=== PATIENT | female | born 1975 | race Caucasian/White ===

== ENCOUNTER 2016-10-19 06:52 | Emergency (ER) | payer OTHER ==
[~2016-10-19 06:52] MED LIST: GLYB5TAB5 PO; IBUP200T2 PO; PRENTAB74 PO; SYNT75TA PO
[2016-10-19] MEDS ORDERED: PERCOCET 5MG/325MG TAB As Ordered ONE (08:05)
[2016-10-19] MEDS ORDERED: predniSONE 20 MG TAB As Ordered ONE (08:06)
--- NOTE | 2016-10-19 08:48 | EDDOCDS ---
Nurse's Notes [facility] Name: Natalie Cr Age: 41 yrs Sex: Female : 1975 Arrival Date: 10/19/2016 Time: 06:52 Bed I2 / M2 Private MD: Diagnosis: Dorsalgia-Acute, Right-sided Presentation: 10/19 07:03 Presenting complaint: Patient states: since Wednesday she has had pain in her neck and now kcs it is in her right shoulder and her right arm - hurts to hold her arm up - states she woke up this am and the pain was so bad she passed out. Adult Sepsis Screening: The patient does not have new or worsening altered mentation. Patient's respiratory rate is less than 22. Systolic blood pressure is greater than 100. Patient has a qSOFA score of 0- Negative Sepsis Screen. Suicide/Homicide risk assessment- the patient denies having any suicidal and/or homicidal ideations and does not present with any other emotional, behavioral or mental health complaints. 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 Transition of care: patient was not received from another setting of care. 07:03 Acuity: PHUONG Level 4 kcs 07:03 Method Of Arrival: Walkin/Carried/Asstd kcs Triage Assessment: 07:07 General: Appears comfortable, well developed, well nourished, well groomed, Behavior is kcs cooperative, pleasant. Pain: Location: right side of neck and down right arm Pain currently is 8 out of 10 on a pain scale. Pt Declines HIV testing. Neurological: Level of Consciousness is awake, alert. Respiratory: Airway is patent Respiratory effort is even, unlabored, Respiratory pattern is regular, symmetrical. Derm: Skin is intact, is healthy with good turgor, Skin is dry, Skin is normal. 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 Synthroid 88 mcg Oral tab 1 tab once daily 2. Multivitamin Oral 1 tablet daily 3. Vitamin D Oral 2000 unit daily 4. Vitamin C 100 mg oral chew 200 mg daily 5. ibuprofen 200 mg oral tab 600 mg as needed (Last dose: 10/18/2016) - PMHx: Thyroid problem; - PSHx: Laparoscopy; - Social history: Smoking status: Patient states was never smoker of tobacco. No barriers to communication noted, The patient speaks fluent Solomon Islander. - Family history: Not pertinent. - : The pt / caregiver states he / she is not on anticoagulants. Home medication list is obtained from the patient. - Exposure Risk Screening:: None identified. Screenin:18 Screening information is obtained from the patient. Primary language is Solomon Islander. Fall jam1 risk: No risks identified. Assistance ADL's: requires no assistance with activities of daily living. Abuse/DV Screen: The patient / caregiver reports he/she is: not in a situation that causes fear, pain or injury. Nutritional screening: No deficits noted. Exposure Risk Screening: None identified. Advance Directives: Currently, there is no health care proxy. There is no active DNR order. There is no living will. There is no Power of Crook Operator. Advance directive information has not previously been placed in an [facility] medical record. Further advance directive information is declined. home support is adequate. Assessment: 07:32 General: Appears uncomfortable, Indicates discomfort to right shoulder blade area that jmk increases with palpation and with movement of arm. Point specific discomfort. without resp distress. 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 07:32 Neurological: Level of Consciousness is awake, alert, Oriented to person, place, time, jmk Creative Developer are equal bilaterally Moves all extremities. Gait is steady, Speech is normal, Facial symmetry appears normal. 08:46 General: Appears states pain has decreased to 2/10. [facility] Vital Signs: 07:07 BP 112 / 76; Pulse 68; Resp 20; Temp 97.1; Pulse Ox 97.0% ; Weight 81.65 kg (R); Height [facility] 5 ft. 9 in. (175.26 cm) (R); Pain 8/10; 08:26 BP 127 / 83; Pulse 55; Resp 20; Temp 97.8; Pulse Ox 99% ; Pain 3/10; jam1 07:07 Body Mass Index 26.58 (81.65 kg, 175.26 cm) [facility] Vitals: 07:07 Log In Time: October 19, 2016 at 06:54. [facility] ED Course: 06:54 Patient visited by Lashae Phan, Reg. hs2 06:54 Patient moved to Waiting hs2 07:04 Triage Initiated kcs 07:10 Patient moved to I2 / M2 kcs 07:20 Pt greeted and oriented to ED. Patient advised of names of staff involved in care, jam location of call [place], wait times and NPO status. Patient has correct armband on for positive identification. Placed in gown. Bed in low position. Call light in reach. Side rails up X 1. Adult w/ patient. Door closed. 07:32 The patient / caregiver is instructed regarding the plan of care and ED course. jmk 07:35 Patient visited by Mkie Almeida RN. jmk 07:40 Elizabeth Barnard PA-C is PHCP. ef1 07:40 Jose Schafer MD is Attending Physician. ef1 07:47 Patient visited by Elizabeth Barnard PA-C. ef1 07:57 [facility] Payment Agreement was scanned into [employer] and attached to record. mm15 08:23 Patient visited by oMni Jaime PCA. jam1 08:46 No IV's were initiated during this patient's visit. No procedures done that require jmk assistance. Administered Medications: 08:12 Drug: Diazepam 10 mg [diazepam 5 mg/mL injection syringe (2 mL)] Route: IM; Site: right k gluteus; 08:46 Follow up: Response: Pain is decreased k 08:12 Drug: oxyCODONE-acetaminophen 1 tabs [oxycodone-acetaminophen 5 mg-325 mg tablet (1 jmk tabs)] Route: PO; 08:46 Follow up: Response: Pain is decreased k 08:12 Drug: predniSONE 60 mg [prednisone 20 mg tablet (3 tabs)] Route: PO; jmk 08:45 Follow up: Response: Pain is decreased jmk Order Results: There are currently no results for this order. Outcome: 08:00 Discharge ordered by Provider. ef1 08:46 Discharge Assessment: Patient awake, alert and oriented x 3. No cognitive and/or jmk functional deficits noted. Patient verbalized understanding of disposition instructions. Discharge Assessment: patient administered narcotics - yes. Pt provided with safe discharge. The following High Risk Discharge criteria are identified: None. Discharged to home ambulatory. Condition: good. Discharge instructions given to patient, Instructed on discharge instructions, follow up and referral plans. medication usage, no driving heavy equipment, Demonstrated understanding of instructions, medications, Pt was receptive of discharge instructions/ teaching. Prescriptions given X 4. No special radiology studies were completed. Property :Personal belongings accompany Pt. 08:47 Patient left the ED. delia Signatures: Heidy Fernandez, RN Mike Rosenberg RN RN jmk Murphy, Jane, JIM RETAIL SUPPORT MANAGER jam1 Elizabeth Barnard, PA-C PA-C ef1 Monique Bourgeois mm15 Lashae Phan, Reg Reg hs2 MTDD
--- NOTE | 2016-10-19 08:48 | EDDOCDS ---
Physician Documentation [facility] Name: Natalie Cr Age: 41 yrs Sex: Female : 1975 Arrival Date: 10/19/2016 Time: 06:52 Bed I2 / M2 Private MD: Disposition: 10/19/16 08:00 Discharged to Home/Self Care. Impression: Dorsalgia - Acute, Right-sided. - Condition is Stable. - Discharge Instructions: Back Pain, Adult, [id number]. - Prescriptions for Mobic 7.5 mg Oral Tablet - take 1 tablet by ORAL route once daily take with food; 20 tablet. Percocet 5- 325 mg Oral Tablet - take 1 tablet by ORAL route every 6 hours As needed MDD: 4 tabs; 10 tablet. Prednisone 20 mg Oral Tablet - take 3 tablet by ORAL route once daily for 5 days; 15 tablet. Zanaflex 4 mg Oral Tablet - take 1 tablet by ORAL route every 8 hours As needed Will cause drowsiness, do not take while driving/operating heavy machinery.; 20 tablet. - Medication Reconciliation, Local Pharmacy Hours form. - Follow up: Private Physician; When: 1 - 2 days; Reason: Recheck today's complaints, Continuance of care. Follow up: Emergency Department; Reason: Worsening of conditions. - Problem is new. - Symptoms have improved. Historical: - Allergies: PENICILLINS (Hives); - Home Meds: 1. Synthroid 88 mcg Oral tab 1 tab once daily 2. Multivitamin Oral 1 tablet daily 3. Vitamin D Oral 2000 unit daily 4. Vitamin C 100 mg oral chew 200 mg daily 5. ibuprofen 200 mg oral tab 600 mg as needed (Last dose: 10/18/2016) - PMHx: Thyroid problem; - PSHx: Laparoscopy; - Social history: Smoking status: Patient states was never smoker of tobacco. No barriers to communication noted, The patient speaks fluent [place]. - Family history: Not pertinent. - : The pt / caregiver states he / she is not on anticoagulants. Home medication list is obtained from the patient. - Exposure Risk Screening:: None identified. 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 9 in. (175.26 cm) (R); Pain 8/10; 08:26 BP 127 / 83; Pulse 55; Resp 20; Temp 97.8; Pulse Ox 99% ; Pain 3/10; jam1 07:07 Body Mass Index 26.58 (81.65 kg, 175.26 cm) kcs MDM: 07:54 Financial registration complete. mm15 07:55 Diazepam 10 mg IM once ordered. ef1 07:55 oxyCODONE-acetaminophen 5 mg-325 mg 1 tabs PO once ordered. ef1 07:55 Ice Pack ordered. ef1 07:55 predniSONE 60 mg PO once; administer with food or milk ordered. ef1 07:57 [facility] Payment Agreement was scanned into [employer] and attached to record. mm15 Administered Medications: 08:12 Drug: Diazepam 10 mg [diazepam 5 mg/mL injection syringe (2 mL)] Route: IM; Site: right k gluteus; 08:46 Follow up: Response: Pain is decreased [facility] 08:12 Drug: oxyCODONE-acetaminophen 1 tabs [oxycodone-acetaminophen 5 mg-325 mg tablet (1 jmk tabs)] Route: PO; 08:46 Follow up: Response: Pain is decreased [facility] 08:12 Drug: predniSONE 60 mg [prednisone 20 mg tablet (3 tabs)] Route: PO; k 08:45 Follow up: Response: Pain is decreased [facility] Signatures: Heidy Fernandez RN RN kcs Knapp, Jean, RN RN jmk Feola, Erica, PA-Thai PA-Thai ef1 Monique Bourgeois mm15 The chart was reviewed and I authenticate all verbal orders and agree with the evaluation and treatment provided.Attachments: 07:57 [facility] Payment Agreement mm15 MTDD
--- NOTE | 2016-10-21 09:48 | EDDOCDS ---
Physician Documentation [facility] Name: Natalie Cr Age: 41 yrs Sex: Female : 1975 Arrival Date: 10/19/2016 Time: 06:52 Bed I2 / M2 Private MD: Disposition: 10/19/16 08:00 Discharged to Home/Self Care. Impression: Dorsalgia - Acute, Right-sided. - Condition is Stable. - Discharge Instructions: Back Pain, Adult, [id number]. - Prescriptions for Mobic 7.5 mg Oral Tablet - take 1 tablet by ORAL route once daily take with food; 20 tablet. Percocet 5- 325 mg Oral Tablet - take 1 tablet by ORAL route every 6 hours As needed MDD: 4 tabs; 10 tablet. Prednisone 20 mg Oral Tablet - take 3 tablet by ORAL route once daily for 5 days; 15 tablet. Zanaflex 4 mg Oral Tablet - take 1 tablet by ORAL route every 8 hours As needed Will cause drowsiness, do not take while driving/operating heavy machinery.; 20 tablet. - Medication Reconciliation, Local Pharmacy Hours form. - Follow up: Private Physician; When: 1 - 2 days; Reason: Recheck today's complaints, Continuance of care. Follow up: Emergency Department; Reason: Worsening of conditions. - Problem is new. - Symptoms have improved. Historical: - Allergies: PENICILLINS (Hives); - Home Meds: 1. Synthroid 88 mcg Oral tab 1 tab once daily 2. Multivitamin Oral 1 tablet daily 3. Vitamin D Oral 2000 unit daily 4. Vitamin C 100 mg oral chew 200 mg daily 5. ibuprofen 200 mg oral tab 600 mg as needed (Last dose: 10/18/2016) - PMHx: Thyroid problem; - PSHx: Laparoscopy; - Social history: Smoking status: Patient states was never smoker of tobacco. No barriers to communication noted, The patient speaks fluent Yakut. - Family history: Not pertinent. - : The pt / caregiver states he / she is not on anticoagulants. Home medication list is obtained from the patient. - Exposure Risk Screening:: None identified. 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 9 in. (175.26 cm) (R); Pain 8/10; 08:26 BP 127 / 83; Pulse 55; Resp 20; Temp 97.8; Pulse Ox 99% ; Pain 3/10; jam1 07:07 Body Mass Index 26.58 (81.65 kg, 175.26 cm) kcs MDM: 07:54 Financial registration complete. mm15 07:55 Diazepam 10 mg IM once ordered. ef1 07:55 oxyCODONE-acetaminophen 5 mg-325 mg 1 tabs PO once ordered. ef1 07:55 Ice Pack ordered. ef1 07:55 predniSONE 60 mg PO once; administer with food or milk ordered. ef1 07:57 [facility] Payment Agreement was scanned into [employer] and attached to record. mm15 14:57 T-Sheet-- Draft Copy was scanned into [employer] and attached to record. gb Administered Medications: 08:12 Drug: Diazepam 10 mg [diazepam 5 mg/mL injection syringe (2 mL)] Route: IM; Site: right abdirahman gluteus; 08:46 Follow up: Response: Pain is decreased [facility] 08:12 Drug: oxyCODONE-acetaminophen 1 tabs [oxycodone-acetaminophen 5 mg-325 mg tablet (1 jmk tabs)] Route: PO; 08:46 Follow up: Response: Pain is decreased [facility] 08:12 Drug: predniSONE 60 mg [prednisone 20 mg tablet (3 tabs)] Route: PO; k 08:45 Follow up: Response: Pain is decreased [facility] Signatures: Heidy Fernandez RN RN kcs Knapp, Jean, RN RN jmk Barnhardt, Gloria, Elizabeth Garcia, KAY VILLANUEVA ef1 Monique Bourgeois mm15 The chart was reviewed and I authenticate all verbal orders and agree with the evaluation and treatment provided.Attachments: :57 [facility] Payment Agreement mm15 14:57 T-Sheet-- Draft Copy gb Chart Complete MTDD
--- NOTE | 2016-10-21 09:48 | EDDOCDS ---
Physician Documentation [facility] Name: Natalie Cr Age: 41 yrs Sex: Female : 1975 Arrival Date: 10/19/2016 Time: 06:52 Bed I2 / M2 Private MD: Disposition: 10/19/16 08:00 Discharged to Home/Self Care. Impression: Dorsalgia - Acute, Right-sided. - Condition is Stable. - Discharge Instructions: Back Pain, Adult, [id number]. - Prescriptions for Mobic 7.5 mg Oral Tablet - take 1 tablet by ORAL route once daily take with food; 20 tablet. Percocet 5- 325 mg Oral Tablet - take 1 tablet by ORAL route every 6 hours As needed MDD: 4 tabs; 10 tablet. Prednisone 20 mg Oral Tablet - take 3 tablet by ORAL route once daily for 5 days; 15 tablet. Zanaflex 4 mg Oral Tablet - take 1 tablet by ORAL route every 8 hours As needed Will cause drowsiness, do not take while driving/operating heavy machinery.; 20 tablet. - Medication Reconciliation, Local Pharmacy Hours form. - Follow up: Private Physician; When: 1 - 2 days; Reason: Recheck today's complaints, Continuance of care. Follow up: Emergency Department; Reason: Worsening of conditions. - Problem is new. - Symptoms have improved. Historical: - Allergies: PENICILLINS (Hives); - Home Meds: 1. Synthroid 88 mcg Oral tab 1 tab once daily 2. Multivitamin Oral 1 tablet daily 3. Vitamin D Oral 2000 unit daily 4. Vitamin C 100 mg oral chew 200 mg daily 5. ibuprofen 200 mg oral tab 600 mg as needed (Last dose: 10/18/2016) - PMHx: Thyroid problem; - PSHx: Laparoscopy; - Social history: Smoking status: Patient states was never smoker of tobacco. No barriers to communication noted, The patient speaks fluent Latvian. - Family history: Not pertinent. - : The pt / caregiver states he / she is not on anticoagulants. Home medication list is obtained from the patient. - Exposure Risk Screening:: None identified. 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 9 in. (175.26 cm) (R); Pain 8/10; 08:26 BP 127 / 83; Pulse 55; Resp 20; Temp 97.8; Pulse Ox 99% ; Pain 3/10; jam1 07:07 Body Mass Index 26.58 (81.65 kg, 175.26 cm) kcs MDM: 07:54 Financial registration complete. mm15 07:55 Diazepam 10 mg IM once ordered. ef1 07:55 oxyCODONE-acetaminophen 5 mg-325 mg 1 tabs PO once ordered. ef1 07:55 Ice Pack ordered. ef1 07:55 predniSONE 60 mg PO once; administer with food or milk ordered. ef1 07:57 [facility] Payment Agreement was scanned into [employer] and attached to record. mm15 14:57 T-Sheet-- Draft Copy was scanned into [employer] and attached to record. gb Administered Medications: 08:12 Drug: Diazepam 10 mg [diazepam 5 mg/mL injection syringe (2 mL)] Route: IM; Site: right abdirahman gluteus; 08:46 Follow up: Response: Pain is decreased [facility] 08:12 Drug: oxyCODONE-acetaminophen 1 tabs [oxycodone-acetaminophen 5 mg-325 mg tablet (1 jmk tabs)] Route: PO; 08:46 Follow up: Response: Pain is decreased [facility] 08:12 Drug: predniSONE 60 mg [prednisone 20 mg tablet (3 tabs)] Route: PO; k 08:45 Follow up: Response: Pain is decreased [facility] Signatures: Heidy Fernandez RN RN kcs Knapp, Jean, RN RN jmk Barnhardt, Gloria, Elizabeth Garcia, KAY VILLANUEVA ef1 Monique Bourgeois mm15 The chart was reviewed and I authenticate all verbal orders and agree with the evaluation and treatment provided.Attachments: :57 [facility] Payment Agreement mm15 14:57 T-Sheet-- Draft Copy gb Chart Complete MTDD
--- NOTE | 2016-10-21 09:48 | EDDOCDS ---
Nurse's Notes [facility] Name: Natalie Cr Age: 41 yrs Sex: Female : 1975 Arrival Date: 10/19/2016 Time: 06:52 Bed I2 / M2 Private MD: Diagnosis: Dorsalgia-Acute, Right-sided Presentation: 10/19 07:03 Presenting complaint: Patient states: since Wednesday she has had pain in her neck and now kcs it is in her right shoulder and her right arm - hurts to hold her arm up - states she woke up this am and the pain was so bad she passed out. Adult Sepsis Screening: The patient does not have new or worsening altered mentation. Patient's respiratory rate is less than 22. Systolic blood pressure is greater than 100. Patient has a qSOFA score of 0- Negative Sepsis Screen. Suicide/Homicide risk assessment- the patient denies having any suicidal and/or homicidal ideations and does not present with any other emotional, behavioral or mental health complaints. Status: Patient is not a ground services instructor or dependent. Transition of care: patient was not received from another setting of care. 07:03 Acuity: PHUONG Level 4 kcs 07:03 Method Of Arrival: Walkin/Carried/Asstd kcs Triage Assessment: 07:07 General: Appears comfortable, well developed, well nourished, well groomed, Behavior is kcs cooperative, pleasant. Pain: Location: right side of neck and down right arm Pain currently is 8 out of 10 on a pain scale. Pt Declines HIV testing. Neurological: Level of Consciousness is awake, alert. Respiratory: Airway is patent Respiratory effort is even, unlabored, Respiratory pattern is regular, symmetrical. Derm: Skin is intact, is healthy with good turgor, Skin is dry, Skin is normal. 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 Synthroid 88 mcg Oral tab 1 tab once daily 2. Multivitamin Oral 1 tablet daily 3. Vitamin D Oral 2000 unit daily 4. Vitamin C 100 mg oral chew 200 mg daily 5. ibuprofen 200 mg oral tab 600 mg as needed (Last dose: 10/18/2016) - PMHx: Thyroid problem; - PSHx: Laparoscopy; - Social history: Smoking status: Patient states was never smoker of tobacco. No barriers to communication noted, The patient speaks fluent Bermudian. - Family history: Not pertinent. - : The pt / caregiver states he / she is not on anticoagulants. Home medication list is obtained from the patient. - Exposure Risk Screening:: None identified. Screenin:18 Screening information is obtained from the patient. Primary language is Bermudian. Fall jam1 risk: No risks identified. Assistance ADL's: requires no assistance with activities of daily living. Abuse/DV Screen: The patient / caregiver reports he/she is: not in a situation that causes fear, pain or injury. Nutritional screening: No deficits noted. Exposure Risk Screening: None identified. Advance Directives: Currently, there is no health care proxy. There is no active DNR order. There is no living will. There is no Power of Rolling Chair Pusher. Advance directive information has not previously been placed in an [facility] medical record. Further advance directive information is declined. home support is adequate. Assessment: 07:32 General: Appears uncomfortable, Indicates discomfort to right shoulder blade area that jmk increases with palpation and with movement of arm. Point specific discomfort. without resp distress. 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 07:32 Neurological: Level of Consciousness is awake, alert, Oriented to person, place, time, jmk Industrial Hygiene Manager are equal bilaterally Moves all extremities. Gait is steady, Speech is normal, Facial symmetry appears normal. 08:46 General: Appears states pain has decreased to 2/10. [facility] Vital Signs: 07:07 BP 112 / 76; Pulse 68; Resp 20; Temp 97.1; Pulse Ox 97.0% ; Weight 81.65 kg (R); Height [facility] 5 ft. 9 in. (175.26 cm) (R); Pain 8/10; 08:26 BP 127 / 83; Pulse 55; Resp 20; Temp 97.8; Pulse Ox 99% ; Pain 3/10; jam1 07:07 Body Mass Index 26.58 (81.65 kg, 175.26 cm) [facility] Vitals: 07:07 Log In Time: October 19, 2016 at 06:54. [facility] ED Course: 06:54 Patient visited by Lashae Phan, Reg. hs2 06:54 Patient moved to Waiting hs2 07:04 Triage Initiated kcs 07:10 Patient moved to I2 / M2 kcs 07:20 Pt greeted and oriented to ED. Patient advised of names of staff involved in care, jam1 location of call [place], wait times and NPO status. Patient has correct armband on for positive identification. Placed in gown. Bed in low position. Call light in reach. Side rails up X 1. Adult w/ patient. Door closed. 07:32 The patient / caregiver is instructed regarding the plan of care and ED course. jmk 07:35 Patient visited by Mike Almeida RN. jmk 07:40 Elizabeth Barnard PA-C is PHCP. ef1 07:40 Jose Schafer MD is Attending Physician. ef1 07:47 Patient visited by Elizabeth Barnard PA-C. ef1 07:57 [facility] Payment Agreement was scanned into [employer] and attached to record. mm15 08:23 Patient visited by Moni Jaime PCA. jam1 08:46 No IV's were initiated during this patient's visit. No procedures done that require jmk assistance. 14:57 T-Sheet-- Draft Copy was scanned into [employer] and attached to record. gb Administered Medications: 08:12 Drug: Diazepam 10 mg [diazepam 5 mg/mL injection syringe (2 mL)] Route: IM; Site: right jmk gluteus; 08:46 Follow up: Response: Pain is decreased jmk 08:12 Drug: oxyCODONE-acetaminophen 1 tabs [oxycodone-acetaminophen 5 mg-325 mg tablet (1 jmk tabs)] Route: PO; 08:46 Follow up: Response: Pain is decreased jmk 08:12 Drug: predniSONE 60 mg [prednisone 20 mg tablet (3 tabs)] Route: PO; jmk 08:45 Follow up: Response: Pain is decreased jmk Order Results: There are currently no results for this order. Outcome: 08:00 Discharge ordered by Provider. ef1 08:46 Discharge Assessment: Patient awake, alert and oriented x 3. No cognitive and/or jmk functional deficits noted. Patient verbalized understanding of disposition instructions. Discharge Assessment: patient administered narcotics - yes. Pt provided with safe discharge. The following High Risk Discharge criteria are identified: None. Discharged to home ambulatory. Condition: good. Discharge instructions given to patient, Instructed on discharge instructions, follow up and referral plans. medication usage, no driving heavy equipment, Demonstrated understanding of instructions, medications, Pt was receptive of discharge instructions/ teaching. Prescriptions given X 4. No special radiology studies were completed. Property :Personal belongings accompany Pt. 08:47 Patient left the ED. delia Signatures: Heidy Fernandez, RN RN Mike Ashraf RN RN Moni Youssef, HIGH SCHOOL TUTOR HIGH SCHOOL TUTOR jam1 Kim Dickey, Reg Reg gb Eliazbeth Barnard, PA-C PA-C ef1 Monique Bourgeois mm15 Lashae Phan, Reg Reg hs2 Chart Complete MTDD
== END 2016-10-19 08:47 | disposition home or self-care (01) ==
LOC: M ED 06:52
DX: M54.9 Dorsalgia, unspecified (principal); E07.9 Disorder of thyroid, unspecified; Z79.899 Other long term (current) drug therapy; Z88.0 Allergy status to penicillin
CPT/HCPCS: 96372; 99283; J3360

== ENCOUNTER → 2017-03-28 | Outpatient (REF) | payer OTHER | LOC: M LAB REF 09:44 | PROVIDERS: ATTEND Physician Assistant | DX: J02.9 Acute pharyngitis, unspecified (principal) ==

== ENCOUNTER → 2017-09-29 | Outpatient (CLI) | payer OTHER | LOC: M ADAMS 08:35 | DX: J20.9 Acute bronchitis, unspecified (principal) | CPT/HCPCS: 71046 ==

== ENCOUNTER → 2018-08-04 | Outpatient (CLI) | payer OTHER | LOC: M ADAMS 10:51 | DX: R06.02 Shortness of breath (principal); J20.9 Acute bronchitis, unspecified | CPT/HCPCS: 71046 ==

== ENCOUNTER → 2018-08-16 | Outpatient (CLI) | payer OTHER | LOC: M ADAMS 13:51 | DX: R05 Cough (principal) | CPT/HCPCS: 71046 ==

== ENCOUNTER → 2018-11-03 | Outpatient (REF) | payer OTHER | LOC: M LAB REF 12:17 | PROVIDERS: ATTEND Physician Assistant | DX: N39.0 Urinary tract infection, site not specified (principal) ==

== ENCOUNTER → 2018-11-15 | Outpatient (REF) | payer OTHER | LOC: M LAB REF 19:27 | PROVIDERS: ATTEND Physician Assistant Medical | DX: R10.9 Unspecified abdominal pain (principal) ==

== ENCOUNTER → 2019-01-24 | Outpatient (REF) | payer OTHER ==
[2019-01-24 18:30] LABS: FREE T4 1.25 NG/DL (0.76-1.46); THYROID STIMULATING HORMONE 2.09 uIU/ML (0.358-3.740)
[2019-01-24 22:25] LABS: FOLLICLE STIMULATING HORMONE 23.3 mIU/mL; LUTEINIZING HORMONE 36.9 mIU/mL
== END ==
LOC: M LAB REF 16:49
PROVIDERS: ATTEND Obstetrics & Gynecology
DX: N92.1 Excessive and frequent menstruation with irregular cycle (principal)

== ENCOUNTER 2019-05-12 06:32 | Day surgery (SDC) | payer OTHER ==
[~2019-05-12] VITALS: Ht 175.3 cm; Wt 86.7 kg
[~2019-05-12 06:32] MED LIST changes: +GLYB5TA PO; +LEVO75TA4 PO; +LR 1,000 ML IV ONE
[2019-05-12] MEDS ORDERED: PROPOFOL 200 MG/20 ML VIAL As Ordered ONE (06:54)
[2019-05-12] MEDS ORDERED: LIDOCAINE 2% INJ 100 MG/5 ML SDV (FOR ANES.) As Ordered ONE ×2 (06:54→08:21)
[2019-05-12] MEDS ORDERED: ONDANSETRON 4MG/2ML VIAL (J2405) As Ordered ONE (06:55)
[2019-05-12] MEDS ORDERED: dexameTHASONE 4 MG/ML 1ML VIAL (J1100) As Ordered ONE (06:55)
[2019-05-12] MEDS ORDERED: KETOROLAC 60 MG/2 ML VIAL (J1885) As Ordered ONE (06:55)
[2019-05-12] MEDS ORDERED: ACETAMINOPHEN 1000MG 100ML IV BTL (OFIRMEV) (J0131 PER 10MG) As Ordered ONE (06:55)
[2019-05-12] MEDS ORDERED: MIDAZOLAM INJ 2 MG/2 ML VIAL (J2250) As Ordered ONE (06:56)
[2019-05-12] MEDS ORDERED: fentaNYL 250 MCG/5 ML INJECTION (J3010) As Ordered ONE (06:56)
[2019-05-12 07:09] LABS: HEMATOCRIT 42.5 % (36.0-47.0); HEMOGLOBIN 14.5 g/dl (12.0-15.5); MEAN CORPUSCULAR HEMOGLOBIN 30.7 pg (27.0-33.0); MEAN CORPUSCULAR HGB CONC 34.1 g/dl (32.0-36.5); MEAN CORPUSCULAR VOLUME 89.9 fl (80.0-96.0); PLATELET COUNT, AUTOMATED 183 10^3/uL (150-450); RED BLOOD COUNT 4.73 10^6/uL (4.00-5.40); WHITE BLOOD COUNT 5.8 10^3/uL (4.0-10.0)
[2019-05-12 07:10] LABS: URINE PREG TEST NEGATIVE (NEGATIVE)
[2019-05-12] MEDS ORDERED: ROCURONIUM BROMIDE 50 MG/5 ML VIAL As Ordered ONE (07:10)
[2019-05-12] MEDS ORDERED: BUPIVACAINE/EPIN 0.25% 30 ML VIAL As Ordered ONE (07:12)
[2019-05-12] MEDS ORDERED: SUGAMMADEX SODIUM 500 MG/5 ML VIAL (BRIDION) As Ordered ONE (07:13)
[2019-05-12] MEDS ORDERED: ACETAMINOPHEN 650 MG SUPP As Ordered ONE (07:40)
[2019-05-12] MEDS ORDERED: PERC5TAB12 PO (08:47)
[2019-05-12] MEDS ORDERED: IBUP80TA PO (08:47)
[2019-05-12] MEDS ORDERED: oxyCODONE 5MG TAB As Ordered ONE (08:59)
[2019-05-12] MEDS ORDERED: LR 1,000 ML IV SCH (09:00)
[2019-05-12] MEDS ORDERED: oxyCODONE 5MG TAB PO PRN (09:00)
[2019-05-12] MEDS ORDERED: fentaNYL 100 MCG/2 ML INJECTION (J3010) IV PRN (09:00)
[2019-05-12] MEDS ORDERED: ONDANSETRON 4MG/2ML VIAL (J2405) IV PRN (09:00)
[2019-05-12] MEDS ORDERED: PERCOCET 5MG/325MG TAB PO PRN (09:15)
[2019-05-12 10:12] VITALS: BP 136/67
[2019-05-12] MEDS ORDERED: IBUPROFEN 800 MG TAB PO SCH (14:00)
--- NOTE | 2019-05-15 16:05 | RO ---
DATE OF PROCEDURE: 05/12/2019 Natalie is a 44-year-old female, multiparity, desires permanent tubal sterilization. The patient also have an extensive history of menorrhagia. After counseling in the office a decision was made to proceed with laparoscopic bilateral salpingectomy, dilation and curettage, hysteroscopy, and NovaSure ablation. PREOPERATIVE DIAGNOSES: 1. Multiparity, desires permanent tubal sterilization. 2. Menorrhagia. POSTOPERATIVE DIAGNOSES: 1. Multiparity, desires permanent tubal sterilization. 2. Menorrhagia. 3. Fibroid uterus. PROCEDURE: 1. Left laparoscopic bilateral salpingectomy. 2. Dilation and curettage. 3. Hysteroscopy. 4. NovaSure ablation. ANESTHESIA: General. SURGEON: Dr. Rice PROFILER OPERATOR: COMPLICATIONS: None. ESTIMATED BLOOD LOSS: Less than 15 mL. FINDINGS: Endometrial curetting. Normal-appearing tubes with fibroid uterus. PROCEDURE: After obtaining informed consent, patient was taken to the operating room where general anesthetic was found to be adequate. She was then draped and prepped in usual sterile fashion in the dorsal lithotomy position. At this point, a Barone catheter was placed in the bladder for drainage. We then placed a Eduardo uterine manipulator. Attention turned to the abdomen where a 5 mm infraumbilical incision was made. Using the Veress needle the abdomen was insufflated with CO2 gas to approximately 3.5 liters. We then placed a 5 mm Xcel trocar along with the laparoscope under direct visualization. Then, an 8 mm right lateral port was placed. The patient was then placed in Trendelenburg. The fallopian tubes were identified and the fallopian tube was then removed entirely using an Dominick Harmonic scalpel. Both side was done in similar fashion. Pelvis copiously irrigated with normal saline and suctioned out. I then turned my attention to the vagina where the uterine manipulator was removed and a single-tooth tenaculum was placed. The uterus was sound to approximately 11 cm in size giving a total cavity length of 6.5. The cervix was dilated. The hysteroscope was inserted. Fluffy endometrium noted. No evidence of any other abnormalities. At this point, a sharp curettage of the endometrial lining was done. Then, the NovaSure device was then inserted. The cavity length adjusted to 6.5. The cavity width to 3.5. The cavity test was then performed. After passing the cavity test, the device was enabled and the endometrial ablation was then started. The cycle lasted approximately 63 seconds. Good hemostasis noted. At this point, we then closed laparoscopic ports using #4-0 Monocryl on the 8-mm port and Dermabond on the rest. 0.25% Marcaine was placed for postoperative pain. The patient tolerated procedure well. She was then transferred to recovery room in stable condition. VINCE
== END 2019-05-12 10:45 | disposition home or self-care (01) ==
LOC: M SDC 06:32
PROVIDERS: ATTEND Obstetrics & Gynecology
DX: N92.0 Excessive and frequent menstruation with regular cycle (principal); Z30.2 Encounter for sterilization; D25.9 Leiomyoma of uterus, unspecified; E03.9 Hypothyroidism, unspecified; J84.10 Pulmonary fibrosis, unspecified; Z79.899 Other long term (current) drug therapy; Z88.0 Allergy status to penicillin; Z88.8 Allergy status to other drugs, medicaments and biological substances
CPT/HCPCS: 36415; 58558; 58661; 84703; 85027; 86850; 86900; 86901; 88302; 88305; J0131; J0690; J1100; J1885; J2250; J2405; J3010

== ENCOUNTER → 2019-09-25 | Outpatient (REF) | payer OTHER ==
[~2019-09-25] MED LIST changes: +IBUP80TA PO; -LR 1,000 ML IV ONE; +PERC5TAB12 PO
== END ==
LOC: M LAB REF 16:42
PROVIDERS: ATTEND Physician Assistant
DX: N39.0 Urinary tract infection, site not specified (principal)

== ENCOUNTER → 2020-05-05 | Outpatient (REF) | payer OTHER | LOC: M LAB REF 09:11 | PROVIDERS: ATTEND Physician Assistant | DX: N39.0 Urinary tract infection, site not specified (principal) ==

== ENCOUNTER 2021-06-27 08:36 | Emergency (ER) | payer OTHER ==
[~2021-06-27] VITALS: Ht 175.3 cm; Wt 85.7 kg
[~2021-06-27 08:36] MED LIST changes: -GLYB5TA PO; +GLYB5TAB6 PO
[2021-06-27] MEDS ORDERED: ALBU83IN (08:52)
[2021-06-27] MEDS ORDERED: FLUTISP (08:52)
[2021-06-27] MEDS ORDERED: SYNT88TA2 (08:52)
[2021-06-27 10:04] LABS: BASO # 0.1 10^3/uL (0.0-0.2); EOS # 0.2 10^3/uL (0.0-0.5); EOS % 2.4 % (0.0-3.0); HEMOGLOBIN 13.9 g/dl (12.0-15.5); LYMPH # 1.5 10^3/uL (1.5-5.0); LYMPH % 24.2 % (24.0-44.0); MEAN CORPUSCULAR HEMOGLOBIN 30.2 pg (27.0-33.0); MEAN CORPUSCULAR HGB CONC 33.9 g/dl (32.0-36.5); MEAN CORPUSCULAR VOLUME 88.9 fl (80.0-96.0); MONO # 0.4 10^3/uL (0.0-0.8); MONO % 6.8 % (2.0-8.0); NEUTROPHILS # 4.1 10^3/uL (1.5-8.5); NEUTROPHILS % 65.3 % (36.0-66.0); PLATELET COUNT, AUTOMATED 154 10^3/uL (150-450); RED BLOOD COUNT 4.61 10^6/uL (4.00-5.40); WHITE BLOOD COUNT 6.2 10^3/uL (4.0-10.0)
--- NOTE | 2021-06-27 11:13 | REP ---
INDICATION: CHEST PAIN COMPARISON: 08/16/2018 TECHNIQUE: Portable AP view of the chest FINDINGS: The mediastinum and cardiac silhouette are stable and within normal limits for portable technique. The lung rolon are clear without acute consolidation, effusion, or pneumothorax. Skeletal structures are intact. IMPRESSION: No acute cardiopulmonary process appreciated. <Electronically signed by Royer Espinal > 06/27/21 [id number]
[2021-06-27 11:59] LABS: BLOOD UREA NITROGEN 16 MG/DL (7-18); CALCIUM LEVEL 9.2 MG/DL (8.5-10.1); CARBON DIOXIDE LEVEL 25 MEQ/L (21-32); CHLORIDE LEVEL 110 MEQ/L (98-107); CK-MB VALUE MASS < 1.0 NG/ML (<3.6); CPK CREATINE PHOSPHOKINASE 155 U/L (26-192); CREATININE FOR GFR 0.76 MG/DL (0.55-1.30); GLOMERULAR FILTRATION RATE > 60.0 (>58); GLUCOSE, FASTING 106 MG/DL (70-100); MB/CK RELATIVE INDEX 0.65 (< OR =4); POTASSIUM SERUM 4.5 MEQ/L (3.5-5.1); SODIUM LEVEL 142 MEQ/L (136-145); TROPONIN I < 0.02 NG/ML (< 0.10)
[2021-06-27 13:01] VITALS: BP 150/82
--- NOTE | 2021-06-28 06:15 | ECGEPIP ---
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
== END 2021-06-27 13:18 | disposition home or self-care (01) ==
LOC: M ED 08:36 → CANBEDREQ 08:54 → M ED 13:18
DX: R07.9 Chest pain, unspecified (principal); F41.9 Anxiety disorder, unspecified; J45.909 Unspecified asthma, uncomplicated; E03.9 Hypothyroidism, unspecified; Z79.51 Long term (current) use of inhaled steroids; Z88.0 Allergy status to penicillin; Z88.8 Allergy status to other drugs, medicaments and biological substances

== ENCOUNTER → 2021-12-02 | Outpatient (CLI) | payer OTHER ==
[~2021-12-02] MED LIST changes: +ALBU83IN; +FLUTISP; +SYNT88TA2
== END ==
LOC: M WHC 08:12
PROVIDERS: ATTEND Nurse Practitioner Adult Health
DX: Z12.31 Encounter for screening mammogram for malignant neoplasm of breast (principal)

== ENCOUNTER → 2024-12-07 | Outpatient (CLI) | payer OTHER ==
[~2024-12-07] MED LIST changes: +ALBU2.5V10; -ALBU83IN
== END ==
LOC: M WHC 12:41
PROVIDERS: ATTEND Nurse Practitioner Family
DX: Z12.31 Encounter for screening mammogram for malignant neoplasm of breast (principal); R92.313 Mammographic fatty tissue density, bilateral breasts